=== PATIENT | male | born 1960 | race Hispanic/Latino ===

== ENCOUNTER 2017-06-07 06:08 | Emergency (ER) | payer SELFPAY ==
[2017-06-07 06:08] VITALS: BMI 31.0
--- NOTE | 2017-06-07 06:43 | ED PDOC ---
Arrival/HPI - General Chief Complaint: Lower Extremity Problem/Injury Time Seen by Provider: 06/07/17 06:35 Historian: Patient - History of Present Illness Narrative History of Present Illness (Text): 06/07/17 06:30 Pt. to ED PMHX diverticulitis,gout,sciaticaa with c/o pain to left lateral buttock/hip area radiating down thigh.Pt states began yesterday initially with discomfort to great toe which he believed was possibly onset of gout.That improved but aforementioned symptoms then began.No hx. of any trauma.No back pain.No fever or chills. Past Medical History - Provider Review Nursing Documentation Reviewed: Yes - Travel History Have you recently traveled outside [place] w/in the past 3 mons?: No - Infectious Disease Hx of Infectious Diseases: None - Tetanus Immunization Tetanus Immunization: Unknown - Cardiac Hx Cardiac Disorders: Yes Hx Hypertension: Yes - Pulmonary Hx Respiratory Disorders: No - Neurological Hx Neurological Disorder: No - HEENT Hx HEENT Disorder: No - Renal Hx Renal Disorder: No - Endocrine/Metabolic Hx Endocrine Disorders: No - Hematological/Oncological Hx Blood Disorders: No - Integumentary Hx Dermatological Disorder: No - Musculoskeletal/Rheumatological Hx Musculoskeletal Disorders: No - Gastrointestinal Hx Gastrointestinal Disorders: Yes Hx Diverticulitis: Yes Other/Comment: hernia; blood in stool ? polyps - Genitourinary/Gynecological Hx Genitourinary Disorders: No - Psychiatric Hx Psychophysiologic Disorder: Yes Hx Anxiety: Yes Hx Substance Use: No - Surgical History Other/Comment: hernia repair (eary ),. fatty growth,neck [id number] - Anesthesia Hx Anesthesia: Yes Hx Anesthesia Reactions: Yes (difficult recovery from anesthesia) Hx Malignant Hyperthermia: No - Suicidal Assessment Feels Threatened In Home Enviroment: No Family/Social History - Physician Review Nursing Documentation Reviewed: Yes Family/Social History: No Known Family HX Smoking Status: Never Smoked Hx Alcohol Use: No Hx Substance Use: No Allergies/Home Meds Allergies/Adverse Reactions: Allergies Penicillins Allergy (Verified 06/07/17 06:18) SWELLING Home Medications: Home Meds Medication Instructions Recorded Confirmed Bisoprolol/Hctz 5 mg-6.25 mg 5 - 6.25 mg PO DAILY 06/05/14 06/07/17 Review of Systems - Review of Systems Constitutional: Normal Eyes: Normal ENT: Normal Respiratory: Normal Cardiovascular: Normal Gastrointestinal: Normal Genitourinary Male: Normal Musculoskeletal: Other (leg pain) Skin: Normal Neurological: Normal Endocrine: Normal Hemo/Lymphatic: Normal Psychiatric: Normal Physical Exam Vital Signs Temp Pulse Resp BP Pulse Ox 06/07/17 06:33 97.8 F 76 18 151/98 H 98 Temperature: Afebrile Blood Pressure: Normal Pulse: Regular Respiratory Rate: Normal Appearance: Positive for: Well-Appearing, Non-Toxic, Uncomfortable Pain Distress: None Mental Status: Positive for: Alert and Oriented X 3 - Systems Exam Respiratory/Chest: Present: Clear to Auscultation, Good Air Exchange. No: Respiratory Distress, Accessory Muscle Use Cardiovascular: Present: Regular Rate and Rhythm, Normal S1, S2. No: Murmurs Abdomen: No: Tenderness, Distention, Peritoneal Signs Upper Extremity: Present: Normal Inspection. No: Cyanosis, Edema Lower Extremity: Present: Normal Inspection, NORMAL PULSES, Normal ROM, Neurovascularly Intact, Other (tenderness at sciatic notch). No: Edema, CALF TENDERNESS, Lilia's Sign, Tenderness, Swelling Neurological: Present: GCS=15, CN II-XII Intact, Speech Normal, Motor Func Grossly Intact, Normal Sensory Function Skin: Present: Warm, Dry, Normal Color. No: Rashes Psychiatric: Present: Alert, Oriented x 3, Normal Insight, Normal Concentration Medical Decision Making ED Course and Treatment: 06/07/17 07:15 Case was endorsed to Vijay Odell/pending response to treatment/reassess /final dispositin - Medication Orders Current Medication Orders: Discontinued Medications Cyclobenzaprine HCl (Flexeril) 10 mg PO ONCE ONE Stop: 06/07/17 06:39 Last Admin: 06/07/17 06:48 Dose: 10 mg Ketorolac Tromethamine (Toradol) 60 mg IM ONCE ONE Stop: 06/07/17 06:39 Last Admin: 06/07/17 06:48 Dose: 60 mg MAR Pain Assessment Document 06/07/17 06:48 IT (Rec: 06/07/17 06:49 IT [id number]) Pain Reassessment Is this a pain reassessment? No Sleep Is patient sleeping during reassessment? No Presence of Pain Presence of Pain Yes Pain Scale Used Pain Scale Used Numeric Location Left, Right or Bilateral Left IM Administration Charges Document 06/07/17 06:48 IT (Rec: 06/07/17 06:49 IT [id number]) Injection Site MAR Injection Site Right Gluteus Eh Charges for Administration # of IM Administrations 1 Disposition/Present on Arrival - Present on Arrival Any Indicators Present on Arrival: No History of DVT/PE: No History of Uncontrolled Diabetes: No Urinary Catheter: No History of Decub. Ulcer: No History Surgical Site Infection Following: None - Disposition Have Diagnosis and Disposition been Completed?: No Diagnosis: Sciatica Disposition Time: 07:14 Condition: STABLE Discharge Instructions (ExitCare): Sciatica (DC) Forms: [email or web address] (Occitan)
[2017-06-07 06:50] VITALS: RESP 18; TEMP 97.8; O2SAT 98
--- NOTE | 2017-06-07 07:17 | ED PDOC ---
Physical Exam Vital Signs Reviewed: Yes Vital Signs Temp Pulse Resp BP Pulse Ox 06/07/17 06:33 97.8 F 76 18 151/98 H 98 Temperature: Afebrile Blood Pressure: Hypertensive Pulse: Regular Respiratory Rate: Normal Appearance: Positive for: Well-Appearing, Non-Toxic, Comfortable Pain Distress: None Mental Status: Positive for: Alert and Oriented X 3 Medical Decision Making ED Course and Treatment: 06/07/17 07:16: Case endorsed to me by Dr. Patton. Patient presents to the emergency room with complaint of left lateral buttock/hip pain radiating down his thigh. Will reassess and disposition patient. 06/07/17 09:12 Patient felt much better after tramadol. He was able to get up and walk with no ataxia. No numbness or weakness. He was given instructions for follow up. He was advised to return to the ED if symptoms worsen or any other concern. - Medication Orders Current Medication Orders: Discontinued Medications Cyclobenzaprine HCl (Flexeril) 10 mg PO ONCE ONE Stop: 06/07/17 06:39 Last Admin: 06/07/17 06:48 Dose: 10 mg Ketorolac Tromethamine (Toradol) 60 mg IM ONCE ONE Stop: 06/07/17 06:39 Last Admin: 06/07/17 06:48 Dose: 60 mg MAR Pain Assessment Document 06/07/17 06:48 IT (Rec: 06/07/17 06:49 IT [id number]) Pain Reassessment Is this a pain reassessment? No Sleep Is patient sleeping during reassessment? No Presence of Pain Presence of Pain Yes Pain Scale Used Pain Scale Used Numeric Location Left, Right or Bilateral Left IM Administration Charges Document 06/07/17 06:48 IT (Rec: 06/07/17 06:49 IT [id number]) Injection Site MAR Injection Site Right Gluteus Eh Charges for Administration # of IM Administrations 1 - Scribe Statement The provider has reviewed the documentation as recorded by the Jayna Moon Provider Scribe Attestation: All medical record entries made by the Scribe were at my direction and personally dictated by me. I have reviewed the chart and agree that the record accurately reflects my personal performance of the history, physical exam, medical decision making, and the department course for this patient. I have also personally directed, reviewed, and agree with the discharge instructions and disposition. Disposition/Present on Arrival - Present on Arrival Any Indicators Present on Arrival: No History of DVT/PE: No History of Uncontrolled Diabetes: No Urinary Catheter: No History of Decub. Ulcer: No History Surgical Site Infection Following: None - Disposition Have Diagnosis and Disposition been Completed?: Yes Diagnosis: Sciatica, Back strain Disposition: HOME/ ROUTINE Disposition Time: 09:15 Patient Plan: Discharge Condition: IMPROVED Discharge Instructions (ExitCare): Sciatica (DC) Additional Instructions: Mr Reyna, thank you for letting us take care of you today. Your provider was Dr. Linares You were treated for Sciatica The emergency medical care you received today was directed at your acute symptoms. If you were prescribed any medication, please fill it and take as directed. It may take several days for your symptoms to resolve. Return to the Emergency Department if your symptoms worsen, do not improve, or if you have any other problems. Please contact your doctor or call one of the physicians/clinics you have been referred to that are listed on the Patient Visit Information form that is included in your discharge packet. Bring any paperwork you were given at discharge with you along with any medications you are taking to your follow up visit. Our treatment cannot replace ongoing medical care by a primary care provider (PCP) outside of the emergency department. Thank you for allowing the [facility] team to be part of your care today. If you had an X-Ray or CT scan: A Radiologist will review the ED reading if any change in treatment is needed we will contact you. If you had a blood, urine, or wound culture: It will take several days for the results, if any change in treatment is needed we will contact you. If you had an STI test: It will take 48 hours for the results. Please call after 1 week if you have not heard back. Prescriptions: Ibuprofen [Motrin] 600 mg PO Q6 PRN #30 tab PRN Reason: Pain, Moderate (4-7) traMADol [Ultram] 50 mg PO Q6H PRN #20 tab PRN Reason: Pain, Moderate (4-7) Referrals: [facility] [place] - Follow up with primary Forms: [employer] (Turkmen), WORK NOTE
[2017-06-07] MEDS ORDERED: Lidocaine 5% Patch TD STA (07:30)
[2017-06-07 09:15] VITALS: BP 129/91; PULSE 72
== END 2017-06-07 09:23 | disposition home or self-care (01) ==
LOC: ED 06:08
DX: S39.012A Strain of muscle, fascia and tendon of lower back, initial encounter (principal); M54.30 Sciatica, unspecified side; X58.XXXA Exposure to other specified factors, initial encounter; I10 Essential (primary) hypertension; M10.9 Gout, unspecified
CPT/HCPCS: 96372; 99284; J1885